=== PATIENT | female | born 1935 | race Caucasian/White ===

== ENCOUNTER 2018-05-18 20:01 | Inpatient (IN) | payer MEDICARE, OTHER ==
[~2018-05-18] VITALS: Ht 147.3 cm; Wt 53.6 kg
[2018-05-18 21:26] LABS: Basophils # (auto) 0.1 uL; Basophils % (auto) 1.8 % (0.0-2.0); Eosinophils # (auto) 0.4 uL; Eosinophils % (auto) 9.8 % (0.0-7.0); Hematocrit 36.6 % (36.0-46.0); Hemoglobin 12.1 g/dL (12.2-16.2); Lymphocytes # (auto) 1.4 uL; Mean Corpuscular Hgb Conc. 32.9 g/dL (32.0-36.0); Mean Corpuscular Volume 87.9 fL (80.0-100.0); Monocytes # (auto) 0.7 uL; Monocytes % (auto) 14.4 % (0.0-12.0); Nucleated Red Blood Cells % 0.1 %; Platelet Count (auto) 263 10^3/uL (140-450); Red Blood Cells 4.16 10^6/uL (4.0-5.20); Red Cell Distribution Width 14.4 % (11.8-14.3); White Blood Cell 4.6 10^3/uL (4.4-10.8)
[2018-05-18 21:44] LABS: INR 1.77 (0.9-1.15); Prothrombin Time 18.3 sec (9.27-12.13)
[2018-05-18 21:50] LABS: Alanine Aminotransferase 16 U/L (13-56); Albumin 3.2 g/dL (3.4-5.0); Alkaline Phosphatase 103 U/L (45-117); Anion Gap 7 (5-15); Aspartate Aminotransferase 15 U/L (15-37); BUN/Creatinine Ratio 36.2; Bilirubin, Total 0.3 mg/dL (0.2-1.0); Blood Urea Nitrogen 21 mg/dL (7-18); Calcium 8.4 mg/dL (8.5-10.1); Carbon Dioxide 29 mmol/L (21-32); Chloride 99 mmol/L (98-107); GFR African American 128 mL/min; GFR Non-African American 106 mL/min; Glucose 97 mg/dL (74-106); Magnesium 2.4 mg/dL (1.6-2.6); Sodium 135 mmol/L (136-145); Total Protein 6.5 g/dL (6.4-8.2)
[2018-05-18 22:56] LABS: Urine Bacteria FEW /hpf (None Seen); Urine Blood Negative /uL (Negative); Urine Hyaline Cast FEW /lpf (0 - 2); Urine Mucus FEW (None Seen); Urine Specific Gravity 1.013 (1.001-1.035); Urine WBC 83 /hpf (0 - 5)
[2018-05-18] MEDS ORDERED: ONDANSETRON HCL 4 MG/2 ML VIAL IV PRN (23:45)
[2018-05-18] MEDS ORDERED: LORazepam 2MG/ML-1ML VIAL IV PRN (23:45)
[2018-05-18] MEDS ORDERED: HYDROcodone-ACET 5/325MG TAB PO PRN (23:45)
[2018-05-18] MEDS ORDERED: TEMAZEPAM 15 MG CAP PO PRN (23:45)
[2018-05-18] MEDS ORDERED: ACETAMINOPHEN 500 MG TAB PO PRN (23:45)
[2018-05-19] VITALS (7 sets, daily range): BP systolic 110–130; BP diastolic 51–74
[2018-05-19] MEDS ORDERED: cefTRIAXone 1GM/10ml IVPUSH 10 ML IV ONE
[2018-05-19] MEDS ORDERED: FUROSEMIDE 20 MG/2 ML VIAL IV ONE
[2018-05-19] MEDS ORDERED: ALBUTEROL SULF 2.5 MG/0.5ML(0.5%) NEB SOLN NEB PRN
[2018-05-19] MEDS ORDERED: WARFARIN SODIUM 5 MG TAB PO ONE (01:45)
[2018-05-19] MEDS ORDERED: MAGN400T5 OR (02:51)
[2018-05-19] MEDS ORDERED: MULT1CAP24 PO (02:51)
[2018-05-19] MEDS ORDERED: OMEP20TA PO (02:51)
[2018-05-19] MEDS ORDERED: WARF7.5T20 PO (02:51)
[2018-05-19] MEDS ORDERED: CALC667C PO (02:51)
[2018-05-19] MEDS ORDERED: FERR1TAB5 PO (02:51)
[2018-05-19] MEDS ORDERED: DULO30CA PO (02:51)
[2018-05-19] MEDS ORDERED: ROPI1TAB22 PO (02:51)
[2018-05-19] MEDS ORDERED: IPRA0.03 (02:51)
[2018-05-19] MEDS ORDERED: WARF5TAB71 PO (02:51)
[2018-05-19 05:52] LABS: Basophils # (auto) 0 uL; Basophils % (auto) 0.9 % (0.0-2.0); Eosinophils # (auto) 0.4 uL; Eosinophils % (auto) 9.9 % (0.0-7.0); Hematocrit 34.9 % (36.0-46.0); Hemoglobin 11.7 g/dL (12.2-16.2); Lymphocytes # (auto) 1.2 uL; Lymphocytes % (auto) 27.8 % (10.0-50.0); Mean Corpuscular Hemoglobin 29.2 pg (28.0-32.0); Mean Corpuscular Hgb Conc. 33.5 g/dL (32.0-36.0); Mean Corpuscular Volume 87.3 fL (80.0-100.0); Monocytes # (auto) 0.6 uL; Monocytes % (auto) 13.8 % (0.0-12.0); Neutrophils # (auto) 2.1 uL; Neutrophils % (auto) 47.6 % (37.0-80.0); Platelet Count (auto) 246 10^3/uL (140-450); Red Blood Cells 3.99 10^6/uL (4.0-5.20); Red Cell Distribution Width 14.3 % (11.8-14.3); White Blood Cell 4.5 10^3/uL (4.4-10.8)
[2018-05-19 06:03] LABS: BUN/Creatinine Ratio 42.6; Calcium 8.5 mg/dL (8.5-10.1); Potassium 3.7 mmol/L (3.5-5.1)
[2018-05-19] MEDS: FUROSEMIDE 40 MG TAB PO SCH (10:00)
[2018-05-19] MEDS ORDERED: MULT-195 OR (16:55)
[2018-05-19] MEDS ORDERED: METO25TA62 PO (16:58)
[2018-05-19] MEDS ORDERED: WARFARIN SODIUM 2.5 MG TAB PO ONE (17:00)
[2018-05-19] MEDS: cefTRIAXone 1GM/10ml IVPUSH 10 ML IV SCH (22:01)
[2018-05-20 05:00] VITALS: BP 111/59
[2018-05-20 06:59] LABS: Basophils # (auto) 0 uL; Basophils % (auto) 0.9 % (0.0-2.0); Eosinophils # (auto) 0.4 uL; Eosinophils % (auto) 10.4 % (0.0-7.0); Hematocrit 38.1 % (36.0-46.0); Hemoglobin 12.7 g/dL (12.2-16.2); Lymphocytes # (auto) 1.1 uL; Lymphocytes % (auto) 28.1 % (10.0-50.0); Mean Corpuscular Hemoglobin 29.3 pg (28.0-32.0); Mean Corpuscular Hgb Conc. 33.4 g/dL (32.0-36.0); Mean Corpuscular Volume 87.7 fL (80.0-100.0); Monocytes # (auto) 0.6 uL; Neutrophils # (auto) 1.9 uL; Neutrophils % (auto) 46.6 % (37.0-80.0); Nucleated Red Blood Cells % 0.1 %; Platelet Count (auto) 247 10^3/uL (140-450); Red Blood Cells 4.34 10^6/uL (4.0-5.20); Red Cell Distribution Width 14.3 % (11.8-14.3)
[2018-05-20 07:15] LABS: INR 1.94 (0.9-1.15)
[2018-05-20 07:16] LABS: Calcium 8.5 mg/dL (8.5-10.1)
[2018-05-20] MEDS: FUROSEMIDE 40 MG TAB PO SCH (09:26)
[2018-05-20] MEDS: METOPROLOL SUCCINATE XL 50 MG TAB PO SCH (09:27)
[2018-05-20 09:31] VITALS: BP 137/80
[2018-05-20] MEDS ORDERED: METOPROLOL SUCCINATE XL 50 MG TAB PO SCH (10:00)
[2018-05-20 12:53] VITALS: BP 100/65
[2018-05-20] MEDS ORDERED: WARFARIN SODIUM 5 MG TAB PO ONE (17:00)
[2018-05-20 17:12] VITALS: BP 114/61
[2018-05-20] MEDS: cefTRIAXone 1GM/10ml IVPUSH 10 ML IV SCH (21:19)
[2018-05-20 22:00] VITALS: BP 102/60
[2018-05-21 05:00] VITALS: BP 127/76
[2018-05-21 07:35] LABS: INR 1.95 (0.9-1.15); Prothrombin Time 20.1 sec (9.27-12.13)
[2018-05-21 07:57] LABS: BUN/Creatinine Ratio 44.4; Bilirubin, Total 0.4 mg/dL (0.2-1.0); Calcium 8.6 mg/dL (8.5-10.1); Total Protein 6.7 g/dL (6.4-8.2)
[2018-05-21 08:30] VITALS: BP 102/72
[2018-05-21 10:07] LABS: Basophils # (auto) 0 uL; Basophils % (auto) 0.9 % (0.0-2.0); Eosinophils # (auto) 0.4 uL; Eosinophils % (auto) 9.6 % (0.0-7.0); Hematocrit 41.8 % (36.0-46.0); Hemoglobin 13.9 g/dL (12.2-16.2); Lymphocytes # (auto) 0.9 uL; Lymphocytes % (auto) 22.7 % (10.0-50.0); Mean Corpuscular Hemoglobin 29.6 pg (28.0-32.0); Mean Corpuscular Hgb Conc. 33.3 g/dL (32.0-36.0); Mean Corpuscular Volume 88.6 fL (80.0-100.0); Monocytes # (auto) 0.4 uL; Monocytes % (auto) 9.9 % (0.0-12.0); Neutrophils # (auto) 2.3 uL; Neutrophils % (auto) 56.9 % (37.0-80.0); Nucleated Red Blood Cells % 0.1 %; Platelet Count (auto) 251 10^3/uL (140-450); Red Blood Cells 4.72 10^6/uL (4.0-5.20); Red Cell Distribution Width 14.7 % (11.8-14.3)
[2018-05-21] MEDS: METOPROLOL SUCCINATE XL 50 MG TAB PO SCH (10:27)
[2018-05-21] MEDS: FUROSEMIDE 40 MG TAB PO SCH (10:28)
[2018-05-21 12:01] VITALS: BP 136/94
[2018-05-21 13:00] VITALS: BP 93/49
[2018-05-21] MEDS ORDERED: WARFARIN SODIUM 5 MG TAB PO ONE (17:00)
== END 2018-05-21 15:00 | disposition home or self-care (01) | DRG 871 ==
LOC: EDBD 20:01 → ER 20:10 → EDBD 20:10 → OVERFLOW 20:11 → WEST WING 05-19 00:58 → CENTRAL 05-20 02:02
PROVIDERS: ADMIT Nurse Practitioner Family; ATTEND Family Medicine
DX: A41.9 Sepsis, unspecified organism (principal); I50.31 Acute diastolic (congestive) heart failure; G93.41 Metabolic encephalopathy; N30.00 Acute cystitis without hematuria; I48.91 Unspecified atrial fibrillation; I11.0 Hypertensive heart disease with heart failure; I70.0 Atherosclerosis of aorta; M85.80 Other specified disorders of bone density and structure, unspecified site; Z96.611 Presence of right artificial shoulder joint; Z96.612 Presence of left artificial shoulder joint; Z79.01 Long term (current) use of anticoagulants; Z82.49 Family history of ischemic heart disease and other diseases of the circulatory system; Z85.3 Personal history of malignant neoplasm of breast; Z90.12 Acquired absence of left breast and nipple; Z95.0 Presence of cardiac pacemaker; Z88.8 Allergy status to other drugs, medicaments and biological substances
CPT/HCPCS: 36415; 70450; 71045; 80048; 80053; 81001; 82570; 83735; 83880; 84443; 84484; 85025; 85379; 85610; 85730; 87040; 87086; 93005; 93306; 94761; 96374; 96375